=== PATIENT | male | born 1965 | race African-American/Black ===

== ENCOUNTER 2017-12-06 05:55 | Emergency (ER) | payer SELFPAY ==
[2017-12-06] MEDS ORDERED: Indomethacin 25 mg Capsule ONE (14:15)
== END 2017-12-06 07:30 | disposition home or self-care (01) ==
LOC: MADERS 05:55
DX: M10.9 Gout, unspecified (principal)
CPT/HCPCS: 96372; J1040

== ENCOUNTER 2019-03-13 07:08 | Emergency (ER) | payer OTHER | END 2019-03-13 08:05 | disposition home or self-care (01) | LOC: MADERS 07:08 | DX: M10.9 Gout, unspecified (principal) ==

== ENCOUNTER 2019-03-31 22:24 | Emergency (ER) | payer OTHER ==
[2019-03-31] MEDS ORDERED: Indomethacin 25 mg Capsule ONE (22:52)
[2019-03-31] MEDS ORDERED: predniSONE 20 MG TAB ONE (22:52)
== END 2019-03-31 23:07 | disposition home or self-care (01) ==
LOC: MADERS 22:24
DX: M10.9 Gout, unspecified (principal); I10 Essential (primary) hypertension
CPT/HCPCS: 99283; J7512

== ENCOUNTER 2019-06-26 06:36 | Emergency (ER) | payer OTHER ==
[2019-06-26] MEDS ORDERED: Ibuprofen 800 MG TAB ONE (07:32)
[2019-06-26] MEDS ORDERED: Dexamethasone 4 MG TAB ONE (07:32)
[2019-06-26] MEDS ORDERED: Colchicine 0.6 MG TAB ONE (07:32)
== END 2019-06-26 07:59 | disposition home or self-care (01) ==
LOC: MADERS 06:36
DX: M10.9 Gout, unspecified (principal); I10 Essential (primary) hypertension; Z79.899 Other long term (current) drug therapy
CPT/HCPCS: 99283; J8540

== ENCOUNTER 2020-03-09 20:34 | Emergency (ER) | payer SELFPAY ==
[2020-03-09] MEDS ORDERED: predniSONE 20 MG TAB ONE (21:26)
== END 2020-03-09 21:33 | disposition home or self-care (01) ==
LOC: MADERS 20:34
DX: M10.9 Gout, unspecified (principal); I10 Essential (primary) hypertension
CPT/HCPCS: 99283; J7512

== ENCOUNTER 2021-01-27 03:49 | Emergency (ER) | payer OTHER, SELFPAY ==
[2021-01-27] MEDS ORDERED: predniSONE 20 MG TAB ONE (04:07)
[2021-01-27] MEDS ORDERED: Acetaminophen 500 MG TAB ONE (04:07)
== END 2021-01-27 04:14 | disposition home or self-care (01) ==
LOC: MADERS 03:49
DX: M10.9 Gout, unspecified (principal); I10 Essential (primary) hypertension
CPT/HCPCS: 99283; J7512

== ENCOUNTER 2023-03-23 12:38 | Emergency (ER) | payer SELFPAY | END 2023-03-23 13:10 | disposition home or self-care (01) | LOC: MADERS 12:38 | DX: M10.9 Gout, unspecified (principal); I10 Essential (primary) hypertension | CPT/HCPCS: 99283 ==

== ENCOUNTER 2024-01-18 05:31 | Emergency (ER) | payer OTHER, SELFPAY ==
[2024-01-18] MEDS ORDERED: cloNIDine 0.1 MG TAB ONE (06:17)
== END 2024-01-18 06:30 | disposition home or self-care (01) ==
LOC: MADERS 05:31
DX: M10.9 Gout, unspecified (principal); I10 Essential (primary) hypertension

== ENCOUNTER 2024-12-01 06:39 | Emergency (ER) | payer OTHER | END 2024-12-01 07:33 | disposition home or self-care (01) | LOC: MADERS 06:39 | DX: M10.9 Gout, unspecified (principal); I10 Essential (primary) hypertension | CPT/HCPCS: 99283 ==

== ENCOUNTER 2025-01-14 07:10 | Emergency (ER) | payer OTHER | END 2025-01-14 08:10 | disposition home or self-care (01) | LOC: MADERS 07:10 | DX: M54.42 Lumbago with sciatica, left side (principal); I10 Essential (primary) hypertension | CPT/HCPCS: 99283 ==